=== PATIENT | female | born 1990 | race Caucasian/White ===

== ENCOUNTER 2024-09-02 00:29 | Day surgery (SDC) | payer OTHER, SELFPAY ==
[2024-08-26 12:45] VITALS: BMI 22.5
--- NOTE | 2024-08-26 12:51 | PC.NURSE ---
Report to the Outpatient Waiting Room, entrance under the green pavilion located off [facility], at time _0600_ on date _[id number]_. Planned Procedure Time: _0730_.? Time changes happen often and if your time is changed the preop area will call you the afternoon before. - You and your visitor will be asked to self-screen and do not enter if you have any COVID symptoms. Please call surgeon if you need to reschedule. - A mask is optional within the hospital at this time. Patients may have clear liquids (water, carbonated beverages, clear teas, apple juice) until 3 hours prior to surgery with a maximum of 20 ounces. - No food from midnight until time of surgery and no smoking, or chewing tobacco (or any form of nicotine). No chewing gum, candy or mints. Take only the following medications with a SIP of water on the morning of surgery: ___None____ DO NOT STOP ANY OF YOUR OTHER PRESCRIPTION MEDICATIONS PRIOR TO SURGERY EXCEPT THE FOLLOWING Hold all vitamins and supplements for 3 days per anesthesiologist. Medications to discontinue per physician Date to take last dose Please no make-up, nail romanian, hairspray, perfume, deodorant, or body powder the day of surgery.? No jewelry (including any body piercings) or valuables the day of surgery, leave them at home.? Please take a shower or bath the night before, or the morning of, surgery with an antibacterial soap.? Wear comfortable, loose fitting clothing.? - Jewelry must be removed prior to entering the operating room.? Rings and piercings that are not removed may be cut off. - The hospital will not accept responsibility for valuables.? - Please leave all valuables, including medications, at home the day of surgery. If you are going home after surgery, a licensed cdl flatbed truck driver must drive you home.? - NO public transportation without another adult if you receive anesthesia. - We recommend that an adult stay with you for 24 hours following discharge. - We also recommend that you do not drive, make important decision, drink alcoholic beverages, or take any drugs that were not prescribed by your health care provider for at least 24 hours after your discharge time. Follow any additional instructions given to you from your surgeon. Telephone instructions given to __Tammy__and asked if any additional questions and then verbalized understanding. Patient advised to call surgeon office or pre surgery nurse liaison [phone] if any additional questions.
[2024-09-02] VITALS (11 sets, daily range): BP systolic 97–126; BP diastolic 58–83; PULSE 69–106; RESP 13–20; TEMP 36.2–36.4; O2SAT 96–100; BMI 22.8
--- OUTSIDE RECORDS SUMMARY | 2024-09-02 00:32 | XMS_ITS | Clinical Summary ---
Author Organization [facility] Address [address] [place] [id number] Care Team Providers Care [employer] Name Role Phone Daron De La Cruz MD Primary Care Provider [phone] Social History Tobacco Use Types Packs/Day Years Used Date Smoking Tobacco: Never Assessed Comments Unknown Sex and Gender Information Value Date Recorded Sex Assigned at Not on file Legal Sex Female 8:28 PM CDT Gender Identity Not on file Sexual Orientation Not on file Plan of Treatment Health Maintenance Due Date Last Done Comments Cervical Cancer Screening Pa p Smear (Age 30 to 64) Every 3 Years 1988 Annual Physical 1991 Hepatitis C 2006 DTaP, Tdap and Td Vaccines ( 1 - Tdap) 2007 Hepatitis B Vaccines (1 of 3 - 19+ 3-dose series) 2007 Cervical Cancer Screening Pa p with HPV Testing (Age 30 to 64) Every 5 Years 2018 Cervical Cancer Screening with HPV 2018 COVID-19 Vaccine ( - 2023-2 5 season) 2024 HPV Vaccines Aged Out No longer eligi ble based on patient's age to complete this topic Meningococcal B Vaccine Aged Out No l onger eligible based on patient's age to complete this topic Meningococcal Vaccine Aged Out No bryce jose eligible based on patient's age to complete this topic Pneumococcal Vaccine: Pediat rics (0 to 5 Years) and At-Risk Patients (6 to 49 Years) Aged Out No longer eligible b ased on patient's age to complete this topic RSV Immunizations Under 20 Months Aged Out No longer eligible based on patient's age to complete this topic Insurance [facility] Care Teams [employer] Relationship Specialty Start Date End Date Daron De La Cruz MD [address] [place] [address] PCP - General 04/13/13
[2024-09-02 06:31] LABS: Urine Cotinine NEGATIVE
[2024-09-02] MEDS: LACTATED RINGERS 1,000 ML 30 ML IV CONT ×2 (06:40→13:27)
[2024-09-02 06:41] LABS: BEDSIDEPREGUCG Negative (Negative)
--- NOTE | 2024-09-02 07:19 | WPDHPUPDATE1 ---
History and Physical Update Update Date/Time: 09/02/24 07:19 History and Physical has been reviewed, including an updated exam of the patient. There are NO changes in the patient's condition. Risks, benefits, and alternatives have been discussed and questions answered. Patient agrees to proceed with procedure.
[2024-09-02] MEDS: TRANEXAMIC ACID 1,000MG/ISO100 1,000 MG/100 ML BAG 200 MG IVPB (07:20)
--- NOTE | 2024-09-02 07:21 | W.PM.PROC2 ---
Procedure Note - Detailed Date of Procedure 09/02/24 Pre-op Diagnosis skin laxity,bilat breast implant rupture Post-op Diagnosis Same Procedure Performed 1. Bilateral breast implant exchange 2. Bilateral revision mastopexy 3. Bra roll excision 4. Revision abdominoplasty (reverse abdominoplasty) Surgeon Aung Martin MD Anesthesia General Findings Previous implants: Right - Sientra 370cc textured - intact Left - Sientra 370cc textured - ruptured New implants: Bilateral Sientra 370cc smooth Right: REF# [id number] SN [id number] Left: REF# [id number] SN [id number] Tissue removed: Back: 788 grams Abdomen: 631 grams Lipoaspirate: 500 cc Description of Procedure They are here today for the above procedures. Previously and again today the risks, benefits, alternatives were discussed in extensive detail. I wanted them to be very realistic about the risks involved as well as expectations. We discussed aftercare and what to monitor for. I was very upfront about the risks of wound breakdown leading to loss of skin, open wounds, and need for additional procedures with permanent abdominal deformity. We discussed DVT/PE risks and management. Made sure answered all of their questions to their satisfaction today and consent was obtained. They were marked in the preoperative holding area with their verification. The patient was taken to the operating room. Anesthesia was provided by anesthesiology. A Shah catheter was started. Posterior Placed prone on the operating room table with care taken to protect from injury. Prepped and draped in a standard sterile fashion. A surgical time-out was taken. Stab incisions were made and tumescent solution was infiltrated. Once adequate time was allowed for hemostasis a 5mm basket and 4mm katt cannula were utilized to complete suction lipectomy based on S.A.F.E. technique in multiple planes and passes. Suction lipectomy continued to result based on pre-operative planning, intra-operative observation, and rolling pinch test which were in full agreement. Bra roll excision A 10 blade was used to make the upper incision and dissection was continued inferior elevating what we necessary for closure (no undermining). This was closed with 3 point suture with 2-0 Vicryl followed 2-0 PDO strattafix, 3-0 stratafix ,running subcuticular 4-0 Monocryl, and tissue glue. Laterally shira were placed for turning. Anterior Patient was then placed supine with care taken to protect from injury. She was prepped and draped in a standard sterile fashion. Tumescent was utilized laterally to provide field block Breast Tegaderm nipple Mendoza were placed. A 15 blade used to make an incision just superior to the inframammary fold leaving a cusp of de-epithelized tissue at the t junction. Dissection was continued until the implant capsule was identified. I elevated superficial to the capsule and significant portion of the capsule was removed and sent to pathology. Findings as above. Implants were removed and I copiously irrigated with 3 liters of saline solution on TUR tubing and verified a strict hemostasis. Next the use a triple antibiotic and Betadine containing solution to irrigate the pocket. I washed my gloves with the triple antibiotic and Betadine solution. We washed the implant immediately upon opening it with this solution and only opened it when we needed it. I used implant funnel and no-touch technique. The implant was introduced into the pocket using the funnel. Having verified positioning of the implant this was closed using 2-0 PDS. I tailor tacked the breast into position. Placed her in a sitting position. Verified the nipple-areolar location based on preoperative planning as well as intraoperative observations and measurements in full agreement. Suction lipectomy was completed laterally with a 4mm katt cannula. This was based on preoperative planning, intraoperative observation, and rolling pinch which was in full agreement. This was continued along upper abdomen for revision of abdominoplasty with reverse abdominoplasty. She was placed supine. I de-epithelialized the pedicle. I then removed the inferior central portion of the breast need making sure the implant was well protected. I elevated medial and lateral tissue flaps as well for planned closure. I closed along the IMF with 2-0 PDS. Along the vertical with 2-0 PDS. Abdomen I elevated central abdomen from superior to inferior as needed to provide mobilization. I closed with 2-0 Vicryl progressive tension suture and at the IMF secured with 2-0 PDS. Closure I closed around the areola with 2-0 Quill, 3-0 strata fix. 3-0 Monocryl along the vertical. 3-0 Stratafix along the IMF. I finally closed everything with running subcuticular 4-0 Monocryl and tissue glue. Fluffs and surgical bra were placed. Estimated Blood Loss 75 Drains No Packing No Pathology Yes (Bilateral breast capsules) Complications No immediate complications Condition Stable Disposition PACU
--- NOTE | 2024-09-02 07:29 | WPDANESEPPF ---
Anes - Initial Pre Proc Eval Procedure: Operation Date: 09/02/24 07:30 Proposed Procedures p Bilateral Breast Implant Exchange, - Aung Martin MD s Bilateral Breast Mastopexy Revision, Bra Roll Excision with Liposuction, - Aung Martin MD s Revision of Upper Abdomen with Liposuction and Skin Excision - Aung Martin MD Date/Time: 09/02/24 07:29 Surgeon: Aung Martin MD Pre Op Diagnosis: skin laxity,bilat breast implant rupture Patient Data Age: 34 Gender: F Height: 1.63 m Weight: 60.5 kg Last Vital Signs Temp 97.1 F L 09/02/24 06:35 Pulse 69 09/02/24 06:35 Resp 16 09/02/24 06:35 BP 97/67 L 09/02/24 06:35 Pulse Ox 96 09/02/24 06:35 O2 Del Method Room Air 09/02/24 06:35 Allergies Allergy/AdvReac Type Severity Reaction Status Date / Time No Known Allergies Allergy Verified 09/02/24 06:33 Home Medications ?Medication ?Instructions ?Recorded ?Confirmed ?Type No Home Medications 08/26/24 08/26/24 History Laboratory Tests 09/02/24 09/02/24 06:15 06:35 POC Urine HCG, Qual Negative (Negative) Cotinine Negative Patient hx anesthesia problems: none Family hx anesthesia problems: none Results Review: All pre-operative results and documents have been reviewed as part of the pre-operative evaluation. [facility] Social History Social History Years smoked: 5 Smoking status: Former smoker Tobacco type: cigarettes Smoking end date: 08/27/11 Substance use type: marijuana Other substance usage details: Occasionally Living arrangements: with family Spiritual care concerns: No Anes - Eval Final PreProcedure Day of Procedure 09/02/24 07:29 Patient weight: normal Heart: regular rate and rhythm Lungs: clear to auscultation Airway: Mallampati scale class II Neurological: alert and oriented Last oral intake: >/= 8 hours ASA classification: II Emergent: no Anesthetic plan: proceed Anesthesia type and monitoring: general ETT and standard monitoring Results Review: All pre-operative results and documents have been reviewed as part of the pre-operative evaluation. Informed Consent: The patient's anesthetic plan and its attendant risks and benefits were discussed with the patient/family/POA. Questions were solicited and answers provided to the satisfaction of the patient/family/POA.
[2024-09-02] MEDS: LACTATED RINGERS IRRIG 1,000 ML, LIDOCAINE 1% LOCAL INJ 50 ML, EPINEPHrine HCL INJ 1 MG... INFILTRATE (07:35)
[2024-09-02] MEDS: NACL 0.9% IRRIG POUR BOTTLE 900 ML, GENTAMICIN SULFATE INJ 160 MG, ceFAZolin 2 GM, POVI... IRRIGATION (07:35)
[2024-09-02] MEDS: ceFAZolin 2 GM/D5W 50 ML 2 GM/50 ML BAG IVPB (07:35)
[2024-09-02] MEDS: fentaNYL CITRATE INJ (*CRX) 100 MCG/2 ML VIAL 25 MCG IV PUSH ×8 (13:40→14:15)
[2024-09-02] MEDS: ONDANSETRON INJ 4 MG/2 ML VIAL IV PUSH (13:42)
[2024-09-02] MEDS: HYDROmorphone HCL INJ (*CRX) 2 MG/ML VIAL 0.5 MG IV PUSH ×4 (14:25→15:01)
[2024-09-02] MEDS: oxyCODONE HCL (*CRX) 5 MG TAB IR PO (15:30)
== END 2024-09-02 16:10 | disposition home or self-care (01) ==
PROVIDERS: Visit Provider Surgery Plastic and Reconstructive Surgery
PROC: (CPT 19342; principal; 2024-09-02 07:30)
PROC: (CPT 19316; 2024-09-02 07:30)
PROC: (CPT 19371; 2024-09-02 07:30)
DX: T85.41XA Breakdown (mechanical) of breast prosthesis and implant, initial encounter (principal); L57.4 Cutis laxa senilis; Y83.8 Other surgical procedures as the cause of abnormal reaction of the patient, or of later complication, without mention of misadventure at the time of the procedure
CPT/HCPCS: 19371; 19325; 19316; 15877; 15830; 15847; 15839; 80307; 88304; A9270; J0171; J0690; J1100; J1171; J1580; J2003; J2250; J2405; J2704; J3010; J7120